=== PATIENT | male | born 1980 | race African-American/Black ===

== ENCOUNTER 2025-02-06 10:02 | Emergency (ER) | payer MEDICAID, SELFPAY ==
[2025-02-06 10:15] VITALS: BP 153/84; PULSE 76; RESP 18; TEMP 37; O2SAT 99; BMI 36.9
--- NOTE | 2025-02-06 10:40 | DI.US.S_ITS ---
PROCEDURE: US PERIPH VENOUS LOW EXTREM LT INDICATIONS: leg pain TECHNIQUE: Real-time imaging, as well as color and pulse Doppler interrogation, were performed of the lower extremity deep veins from the inguinal ligament to the popliteal fossa, with documentation of the visualized calf veins. COMPARISON: None. FINDINGS: The common femoral, femoral, popliteal, and the visualized calf veins are normally compressible, and free of intraluminal thrombus. Color and pulse Doppler demonstrate normal phasic intraluminal flow. There is normal augmentation response to distal compression maneuver. IMPRESSION: No findings of lower extremity deep venous thrombosis. Dictated by: Dominik Ham M.D. on 02/06/2025 at 11:04 Approved by: Dominik Ham M.D. on 02/06/2025 at 11:05
--- NOTE | 2025-02-06 10:40 | ED.EXTPRO ---
HPI - Extremity Problem General Chief complaint: Extremity Problem,Nontraumatic Stated complaint: blood clot in left leg? 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 He denies chest pain, shortness of breath, fever, chills, body aches, sore throat, cough. Not done anything for the pain at this time. Other than what is stated 14 point review of system is negative. Related Data Previous Rx's ?Medication ?Instructions ?Recorded clindamycin HCl 150 mg capsule 450 mg (3 x 150 mg) PO TID 7 days 02/06/25 #63 caps clotrimazole 1 % topical cream 1 applic topical TID #45 grams 02/06/25 (Athlete's Foot (clotrimazole)) Allergies Allergy/AdvReac Type Severity Reaction Status Date / Time amoxicillin AdvReac Vomiting Verified 02/06/25 10:22 Review of Systems Review of Systems ROS Unobtainable: All systems reviewed & are unremarkable except as noted in HPI and below Patient History Social History Smoking Status: Current every day smoker Smoking Status: Current every day smoker tobacco type: vaping Exam Narrative Exam Narrative: GENERAL: [45] year old patient appears stated age. Well-developed patient, in mild distress. HEAD: Atraumatic. Normocephalic. EYES: Pupils equal round and reactive. Extraocular motions intact. No scleral icterus. No injection or drainage. ENT: Nose without bleeding, purulent drainage. Throat without erythema, tonsillar hypertrophy or exudate. Airway patent. Dental caries left lower teeth on right side NECK: Trachea midline. Non tender CARDIOVASCULAR: Regular rate and rhythm without murmurs, gallops, or rubs. RESPIRATORY: Clear to auscultation. Breath sounds equal bilaterally. No wheezes, rales, or rhonchi. GASTROINTESTINAL: Abdomen soft, non-tender, nondistended. EXTREMITIES: No edema or joint tenderness. Left calf tender to palpate slightly increased calf girth enlargement compared to right side, negative You and cord not palpable motor sensory intact +2 DP +2 PT cap refill less than 2 seconds BACK: Nontender without deformity or crepitance. No flank tenderness. NEURO: AOx3. SKIN: Tinea pedis on toes 3 4 and 5 left feet her sensory intact +2 DP +2 PD cap refill less than 2 seconds Initial Vital Signs Initial Vital Signs: Vital Signs Temperature 98.6 F 02/06/25 10:15 Pulse Rate 76 02/06/25 10:15 Respiratory Rate 18 02/06/25 10:15 Blood Pressure 153/84 H 02/06/25 10:15 Pulse Oximetry 99 02/06/25 10:15 Oxygen Delivery Method Room Air 02/06/25 10:15 Course Orders Ordered: ED Orders 02/06/25 10:23 Consult to STAFF TRAINING AND DEVELOPMENT MANAGER - Proofer Apprentice Stat 02/06/25 10:40 perip venous low extrem lt Stat Vital Signs Vital signs: Vital Signs - 8 hr 02/06/25 10:15 Temperature 98.6 F Pulse Rate 76 Respiratory Rate 18 Blood Pressure 153/84 H Pulse Oximetry 99 Oxygen Delivery Method Room Air MDM - Extremity (Nontraumatic) MDM Narrative Medical decision making narrative: Vital signs, nurse triage note, medication list, previous ER visits, and all imaging modality reviewed. Ultrasound shows no acute DVT. Differential diagnosis includes DVT superficial thrombophlebitis muscle cramps. Discharge Plan Departure Patient Disposition: Home Clinical Impression: Acute leg pain, Athlete's foot on left, Abscess, dental Instructions: DI for Leg Pain Activity Restrictions/Additional Instructions: Return with new or worsening symptoms. Take Tylenol and/or ibuprofen for pain control. Keep hydrated. Follow up PCP in 1-2 weeks if no improvement in symptoms. Prescriptions: New clindamycin HCl 150 mg capsule 450 mg PO TID 7 Days Qty: 63 0RF clotrimazole [Athlete's Foot (clotrimazole)] 1 % cream 1 applic topical TID Qty: 45 0RF Stand Alone Forms: Patient Portal/API
--- NOTE | 2025-02-06 11:31 | CM.SWNOTE ---
ED CONCRETE PIPE PLANT SUPERVISOR Assessment Note: Pt is a 45yo male, resident of [place], is seen in the ED for possible blood clot in leg. Pt lives in a motel room currently. Reviewed chart and discussed with multidisciplinary team pt's medical status and initial discharge needs. CONCRETE PIPE PLANT SUPERVISOR consulted for food insecurity. CONCRETE PIPE PLANT SUPERVISOR entered room to meet with patient, introduced self and role. Pt endorses request for food vouchers due to having to pay motel rent instead of purchasing groceries. ED CONCRETE PIPE PLANT SUPERVISOR provided list of community resources to include food bhardwaj, community meals, and [facility] [place]. Pt stated he will call their office now. CONCRETE PIPE PLANT SUPERVISOR reviews this with ED provider Dr. Hunt who indicates agreement and understanding, discussed with pt RN that resources have been provided. Plan: Pt to discharge home when medically cleared, will follow with community resources. JAXSON Parkinson
[2025-02-06 11:43] VITALS: BP 136/83; PULSE 87; RESP 16; O2SAT 100
== END 2025-02-06 11:45 | disposition home or self-care (01) ==
PROVIDERS: Emergency Provider Family Medicine
DX: M79.605 Pain in left leg (principal); B35.3 Tinea pedis; K04.7 Periapical abscess without sinus; F12.90 Cannabis use, unspecified, uncomplicated
CPT/HCPCS: 93971; 99281; 99283

== ENCOUNTER 2025-03-11 06:01 | Emergency (ER) | payer OTHER, SELFPAY ==
--- NOTE | 2025-03-11 06:29 | ED_ITS ---
HPI - General Adult General Stated complaint: Poss blood clot Lt Leg, pain, trouble standing Time Seen by Provider: 03/11/25 06:26 Source: patient, RN notes reviewed and old records reviewed Mode of arrival: Family Vehicle Limitations: no limitations Related Data Previous Rx's ?Medication ?Instructions ?Recorded clotrimazole 1 % topical cream 1 applic topical TID #4 5 grams 02/06/25 (Athlete's Foot (clotrimazole)) Allergies Allergy/AdvReac Type Severity Reaction Status Date / Time amoxicillin AdvReac Vomiting Verified 02/06/25 10:22 Review of Systems Review of Systems ROS Unobtainable: All systems reviewed & are unremarkable except as noted in HPI and below Patient History tobacco type: vaping Discharge Plan Departure Prescriptions: No Action clotrimazole [Athlete's Foot (clotrimazole)] 1 % cream 1 applic topical TID Qty: 45 0RF
[2025-03-11 06:55] VITALS: BP 145/92; PULSE 78; RESP 18; O2SAT 100; BMI 29.0
--- NOTE | 2025-03-11 07:24 | ED_ITS ---
HPI - Extremity Problem General Chief complaint: Extremity Problem,Nontraumatic Stated complaint: Poss blood clot Lt Leg, pain, trouble standing Time Seen by Provider: 03/11/25 06:26 Source: patient, RN notes reviewed and old records reviewed Mode of arrival: Family Vehicle History of Present Illness HPI Narrative: 45-year-old gentleman presents with left lower back pain radiating down to left calf that is been going on for the past 3 months intermittently for which he was initially seen at another ER in the past few weeks for which he had a negative workup. He is still symptomatic at this time but denies any chest pain shortness of breath, dyspnea on exertion, trauma to the area, or recent heavy lifting. Other than what is stated 14 point review of system is negative. Related Data Previous Rx's ?Medication ?Instructions ?Recorded clotrimazole 1 % topical cream 1 applic topical TID #4 5 grams 02/06/25 (Athlete's Foot (clotrimazole)) diclofenac sodium 75 mg 75 mg PO BID #30 tabs tablet,delayed release gabapentin 300 mg capsule 300 mg PO TID #30 caps 03/11 prednisone 20 mg tablet 40 mg (2 x 20 mg) PO DAILY # 10 tabs 03/11/25 Allergies Allergy/AdvReac Type Severity Reaction Status Date / Time amoxicillin AdvReac Vomiting Verified 02/06/25 10:22 Review of Systems Review of Systems ROS Unobtainable: All systems reviewed & are unremarkable except as noted in HPI and below Patient History tobacco type: vaping Exam Narrative Exam Narrative: GENERAL: [45] year old patient appears stated age. Well-developed patient, in mild distress. HEAD: Atraumatic. Normocephalic. EYES: Pupils equal round and reactive. Extraocular motions intact. No scleral icterus. No injection or drainage. ENT: Nose without bleeding, purulent drainage. Throat without erythema, tonsillar hypertrophy or exudate. Airway patent. NECK: Trachea midline. Non tender CARDIOVASCULAR: Regular rate and rhythm without murmurs, gallops, or rubs. RESPIRATORY: Clear to auscultation. Breath sounds equal bilaterally. No wheezes, rales, or rhonchi. GASTROINTESTINAL: Abdomen soft, non-tender, nondistended. EXTREMITIES: No edema or joint tenderness. BACK: Nontender without deformity or crepitance in the midline region. No flank tenderness. L-S paralumbosacral region [id number] region NEURO: AOx3. SKIN: No rash or erythema of visible areas Initial Vital Signs Initial Vital Signs: Vital Signs Pulse Rate 78 03/11/25 06:55 Respiratory Rate 18 03/11/25 06:55 Blood Pressure 145/92 H 03/11/25 06:55 Pulse Oximetry 100 03/11/25 06:55 Oxygen Delivery Method Room Air 03/11/25 06:55 [place] [facility] [place] Procedure: L sided back steroid trigger point injection Side (if applicable): left Location: paralumbosacral region Time out performed: Yes Technique/Description of procedure performed: Patient draped and prepped in a sterile fashion. Using 2% lidocaine 4 mL without epinephrine and Kenalog 40 mg 1 mL using a 22 1-1/2 gauge needle L4 (3ml) L5 (3ml) and S1(4ml) were injected for which patient tolerated procedure without any complications. Patient tolerated procedure: Well Complications: none Course Vital Signs Vital signs: Vital Signs - 8 hr 03/11/25 06:55 Pulse Rate 78 Respiratory Rate 18 Blood Pressure 145/92 H Pulse Oximetry 100 Oxygen Delivery Method Room Air MDM - Extremity (Nontraumatic) MDM Narrative Medical decision making narrative: Vital signs, nurse triage note, medication list, previous ER visits, and all imaging studies reviewed. Patient given Tylenol ibuprofen and also left sided steroid trigger point injection for which patient tolerated procedure with no complication. Differential diagnosis includes sciatica piriformis syndrome osteoarthritis lumbar strain. DC home on diclofenac, gabapentin, and prednisone. Discharge Plan Departure Patient Disposition: Home Clinical Impression: Sciatica Qualifiers: Laterality: left Qualified Code(s): M54.32 - Sciatica, left side Instructions: DI for Back Pain With Sciatica Activity Restrictions/Additional Instructions: Return with new or worsening symptoms. Take your medicines directed. Follow up PCP in 1-2 weeks if no improvement in symptoms. Prescriptions: New gabapentin 300 mg capsule 300 mg PO TID Qty: 30 0RF prednisone 20 mg tablet 40 mg PO DAILY Qty: 10 0RF diclofenac sodium 75 mg tablet,delayed release (DR/EC) 75 mg PO BID Qty: 30 0RF No Action clotrimazole [Athlete's Foot (clotrimazole)] 1 % cream 1 applic topical TID Qty: 45 0RF Stand Alone Forms: Patient Portal/API
[2025-03-11] MEDS: IBUPROFEN 400 MG TABLET 800 MG PO (08:08)
[2025-03-11] MEDS: ACETAMINOPHEN 325 MG TABLET 975 MG PO (08:08)
[2025-03-11] MEDS: TRIAMCINOLONE 40 MG/ML VIAL INJ (08:09)
[2025-03-11] MEDS: LIDOCAINE 2% INJ MDV 20ML 20 ML INJ (08:09)
[2025-03-11 08:39] VITALS: BP 151/97; PULSE 70; RESP 16; O2SAT 100
== END 2025-03-11 08:39 | disposition home or self-care (01) ==
PROVIDERS: Emergency Provider Family Medicine
DX: M54.32 Sciatica, left side (principal); F17.290 Nicotine dependence, other tobacco product, uncomplicated
CPT/HCPCS: 20553; 99283; 99284

== ENCOUNTER 2025-03-29 09:48 | Emergency (ER) | payer OTHER, SELFPAY ==
--- NOTE | 2025-03-29 09:56 | PC.NURSE ---
Called for patient no answer
[2025-03-29 10:16] VITALS: BP 149/98; PULSE 88; RESP 16; TEMP 36.5; O2SAT 99; BMI 31.0
--- NOTE | 2025-03-29 11:30 | ED_ITS ---
HPI - Extremity Injury (Lower) <Marquita Isaacs PA-C - Last Filed: 03/29/25 13:51> General Chief Complaint: Extremity Injury, Lower Stated Complaint: took advil and diclofenac sodium/worried Time Seen by Provider: 03/29/25 11:03 Source: patient Mode of arrival: Ambulatory History of Present Illness HPI Narrative: Mr. Estevez is a pleasant 45-year-old male with a past medical history of hypertension sleep apnea who has been struggling with left leg sciatica intermittently over the last 3 months who presents to the emergency department for concern of left calf pain in addition to concern of taking both ibuprofen and diclofenac together accidentally. Patient was seen in this ER earlier this month and was prescribed gabapentin, prednisone and diclofenac for left lower extremity sciatica symptoms. Patient reports he had improvement symptoms with the gabapentin however he ran out of this prescription. He took diclofenac at 2:30 a.m. because he had pretty significant pain and when he woke up this morning he took ibuprofen around 9:30 a.m., he reports taking 5 or 6 ibuprofen tablets. He then Google this medication and realized that he was not supposed to take diclofenac and ibuprofen together and came to the ER because he was concerned that he may have injured himself. Patient is also reporting occasional tinnitus 10 pain of the left calf, this pain does originate in the left side of the low back and radiate down the leg. He is concerned because despite taking a large amount of NSAIDs, they are not resolving his pain. He does work as a trailer tank truck driver. No bowel or bladder incontinence, weakness, saddle anesthesia, fevers, chills, chest pain, shortness of breath. No melena, hematemesis, or bloody stool. Related Data Previous Rx's ?Medication ?Instructions ?Recorded clotrimazole 1 % topical cream 1 applic topical TID #4 5 grams 02/06/25 (Athlete's Foot (clotrimazole)) diclofenac sodium 75 mg 75 mg PO BID #30 tabs tablet,delayed release gabapentin 300 mg capsule 300 mg PO TID #30 caps 03/11 prednisone 20 mg tablet 40 mg (2 x 20 mg) PO DAILY # 10 tabs 03/11/25 gabapentin 300 mg capsule 300 mg PO TID PRN nerve pain #30 03/29/25 caps ibuprofen 400 mg tablet 400 mg PO Q8H PRN pain #30 t abs 03/29/25 Allergies Allergy/AdvReac Type Severity Reaction Status Date / Time amoxicillin AdvReac Vomiting Verified 02/06/25 10:22 Review of Systems <Marquita Vallejo COLLEEN Isaacs - Last Filed: 03/29/25 13:51> Review of Systems ROS Unobtainable: All systems reviewed & are unremarkable except as noted in HPI and below Patient History <Marquita Vallejo COLLEEN Isaacs - Last Filed: 03/29/25 13:51> tobacco type: vaping Exam <Marquita Vallejo COLLEEN Isaacs - Last Filed: 03/29/25 13:51> Narrative Exam Narrative: GENERAL: 45 year old patient appears stated age. Well-developed patient, in no acute distress. HEAD: Atraumatic. Normocephalic. EYES: No scleral icterus. No injection or drainage. ENT: Nose without bleeding, purulent drainage. NECK: Trachea midline. Cervical ROM intact. CARDIOVASCULAR: Regular rate RESPIRATORY: ?Nonlabored respirations. ?Speaking in clear, full sentences. ? EXTREMITIES: No LE edema or color change. He does have tenderness palpation of the left calf muscle region. 2+ DP and PT pulse and brisk cap refill in the toes, sensation intact to light touch. Patient is ambulatory but with discomfort. BACK: No midline spinal tenderness or paralumbar tenderness. Patient does report pain initiating in the left SI joint region. NEURO: AOx3. ?Clear speech. ?Moves all 4 extremities appropriately. SKIN: No rash or erythema of visible areas Initial Vital Signs Initial Vital Signs: Vital Signs Temperature 97.7 F 03/29/25 10:16 Pulse Rate 88 03/29/25 10:16 Respiratory Rate 16 03/29/25 10:16 Blood Pressure 149/98 H 03/29/25 10:16 Pulse Oximetry 99 03/29/25 10:16 Oxygen Delivery Method Room Air 03/29/25 10:16 <Jose Muniz MD - Last Filed: 03/29/25 14:08> Initial Vital Signs Initial Vital Signs: Vital Signs Temperature 97.7 F 03/29/25 10:16 Pulse Rate 88 03/29/25 10:16 Respiratory Rate 16 03/29/25 10:16 Blood Pressure 149/98 H 03/29/25 10:16 Pulse Oximetry 99 03/29/25 10:16 Oxygen Delivery Method Room Air 03/29/25 10:16 Course <Marquita Isaacs PA-C - Last Filed: 03/29/25 13:51> Orders Ordered: ED Orders 03/29/25 11:37 [facility] venous low extrem lt Stat Vital Signs Vital signs: Vital Signs - 8 hr 03/29/25 10:16 03/29/25 12:52 Temperature 97.7 F Pulse Rate 88 73 Respiratory Rate 16 18 Blood Pressure 149/98 H 178/94 H Pulse Oximetry 99 98 Oxygen Delivery Method Room Air Room Air <Jose Muniz MD - Last Filed: 03/29/25 14:08> Orders Ordered: ED Orders 03/29/25 11:37 [facility] venous low extrem lt Stat Vital Signs Vital signs: Vital Signs - 8 hr 03/29/25 10:16 03/29/25 12:52 Temperature 97.7 F Pulse Rate 88 73 Respiratory Rate 16 18 Blood Pressure 149/98 H 178/94 H Pulse Oximetry 99 98 Oxygen Delivery Method Room Air Room Air MDM - Extremity Injury (Lower) <Marquita Isaacs PA-C - Last Filed: 03/29/25 13:51> Medical Records Attestation: I reviewed the patient's medical records. Imaging Data LLE Vascular US: Radiologist's Impression: PROCEDURE: US [facility] VENOUS LOW EXTREM LT INDICATIONS: Left calf pain, cramping, concern dvt TECHNIQUE: Real-time imaging, as well as color and pulse Doppler interrogation, were performed of the lower extremity deep veins from the inguinal ligament to the popliteal fossa, with documentation of the visualized calf veins. COMPARISON: [facility], PERIP VENOUS LOW EXTREM LT, 02/06/2025, 10:52. FINDINGS: The common femoral, femoral, popliteal, and the visualized calf veins are normally compressible, and free of intraluminal thrombus. Color and pulse Doppler demonstrate normal phasic intraluminal flow. There is normal augmentation response to distal compression maneuver. IMPRESSION: No findings of lower extremity deep venous thrombosis. Dictated by: Ramone Knox M.D. on 03/29/2025 at 11:24 Approved by: Ramone Knox M.D. on 03/29/2025 at 11:24 [facility] Narrative Medical decision making narrative: 45-year-old male with a past medical history of hypertension sleep apnea who has been struggling with left leg sciatica intermittently over the last 3 months who presents to the emergency department for concern of left calf pain in addition to concern of taking both ibuprofen and diclofenac together accidentally. Differential diagnosis includes but isn't limited to medication misuse, left lumbar radiculopathy, calf strain, sprain, DVT, etc. On exam patient is in no acute distress, nontoxic appearing, vital signs appropriate. He was concerned after taking diclofenac and ibuprofen this morning. He is not having any abdominal pain melena or hematemesis. He is still having severe left lumbar radiculopathy however with pain primarily in the left calf. He does have large calves bilaterally however no obvious unilateral edema, strong pulses and sensation intact to light touch however given focal calf pain and tenderness we will obtain ultrasound. Patient states that his pain was improved when he was taking the gabapentin so we will resume this until he can see PCP. Ultrasound reveals no DVT. Discussed with the patient using gabapentin to help with nerve pain, I did refill this for him, in addition to Tylenol for pain, heat therapy, stretching. I did prescribe him ibuprofen 400 mg to use if needed for pain, stressed the strict importance of using NSAIDs as directed, advised he not take any NSAIDs for at least the next week. Discussed strict ER return precautions and follow up with PCP. Patient verbalized understanding of all information agreeable with the plan. He is ambulatory and stable for discharge home. Discharge Plan Departure Patient Disposition: Home Clinical Impression: Chronic left-sided lumbar radiculopathy, Pain of left calf Instructions: DI for Lumbar Radiculopathy Activity Restrictions/Additional Instructions: Dear Mr. Barriga, Thank you for coming to the emergency department. Today you were evaluated for left leg pain and calf pain. As we discussed today, I do not want you taking ibuprofen and diclofenac together. Avoid taking any NSAIDs for the next few days. Only use 400 mg of ibuprofen every 8 hours if needed. Return to the ER immediately if you develop severe abdominal pain, black or bloody stool or bloody vomit. Please use heat therapy on the low back and stretching to help with your pain. I have refilled your gabapentin to use as needed for nerve pain. Please also use Tylenol for pain. Return to the ER immediately if you develop new or worsening symptoms, inability to walk, difficulty with your bowels or bladder or any other concerns. Please follow up with your primary care doctor within the next 2-3 days for ER follow-up. (If you do not have a PCP you can call [phone]. ?to schedule an appointment with an [facility] Primary Care Provider) IF YOU DEVELOP ANY NEW OR WORSENING SYMPTOMS, RETURN TO THE ER! Please read the attached instructions, they highlight more specific treatments and interventions for you at home. Thank you for letting me participate in your care, Marquita Isaacs PA-C Prescriptions: New gabapentin 300 mg capsule 300 mg PO TID PRN (Reason: nerve pain) Qty: 30 0RF ibuprofen 400 mg tablet 400 mg PO Q8H PRN (Reason: pain) Qty: 30 0RF Rx Instructions: Take with food. No Action clotrimazole [Athlete's Foot (clotrimazole)] 1 % cream 1 applic topical TID Qty: 45 0RF gabapentin 300 mg capsule 300 mg PO TID Qty: 30 0RF prednisone 20 mg tablet 40 mg PO DAILY Qty: 10 0RF diclofenac sodium 75 mg tablet,delayed release (DR/EC) 75 mg PO BID Qty: 30 0RF Stand Alone Forms: Patient Portal/API ED Sign-out <Jose Muniz MD - Last Filed: 03/29/25 14:08> Cosign ED Attending Cosignature Attestation: I was immediately available in the department for consultation. ?This documentation has been reviewed and I agree with assessment and plan. Supervised by Jose Muniz MD
--- NOTE | 2025-03-29 11:37 | DI.US.S_ITS ---
PROCEDURE: US PERIP VENOUS LOW EXTREM LT INDICATIONS: Left calf pain, cramping, concern dvt TECHNIQUE: Real-time imaging, as well as color and pulse Doppler interrogation, were performed of the lower extremity deep veins from the inguinal ligament to the popliteal fossa, with documentation of the visualized calf veins. COMPARISON: [facility], [facility] VENOUS LOW EXTREM LT, 02/06/2025, 10:52. FINDINGS: The common femoral, femoral, popliteal, and the visualized calf veins are normally compressible, and free of intraluminal thrombus. Color and pulse Doppler demonstrate normal phasic intraluminal flow. There is normal augmentation response to distal compression maneuver. IMPRESSION: No findings of lower extremity deep venous thrombosis. Dictated by: Ramone Knox M.D. on 03/29/2025 at 11:24 Approved by: Ramone Knox M.D. on 03/29/2025 at 11:24
[2025-03-29 12:52] VITALS: BP 178/94; PULSE 73; RESP 18; O2SAT 98
== END 2025-03-29 12:53 | disposition home or self-care (01) ==
PROVIDERS: Emergency Provider Physician Assistant
DX: M54.16 Radiculopathy, lumbar region (principal); M79.605 Pain in left leg
CPT/HCPCS: 93971; 99281; 99283

== ENCOUNTER 2025-05-22 07:31 | Emergency (ER) | payer OTHER, SELFPAY ==
[2025-05-22 08:00] VITALS: BP 186/90; PULSE 91; RESP 12; TEMP 37.7; O2SAT 100; BMI 29.2
--- NOTE | 2025-05-22 08:05 | ED.DENTAL ---
HPI - Dental/Oral General Chief complaint: Dental/Oral Stated complaint: Right side Mouth pain, needs pain meds Time Seen by Provider: 05/22/25 08:00 History of Present Illness HPI Narrative: Patient here for right upper teeth pain. No swelling no fever no trouble swallowing. Patient is seen by his dentist a week ago for wisdom teeth removed left upper side. Has been doing well with that but they did not prescribe him antibiotics. He was given clindamycin a couple of months ago prior to his surgery. He said that it helped his pain a lot. He is on Motrin for pain control and it has not helped. He does wish for Tylenol 3 to help for pain. He will be started on clindamycin again. He has not follow up with this oral surgeon yet. Patient understands no driving operating machinery when taking Tylenol 3. He will continue the ibuprofen for pain control as well. Patient is a smoker. Encouraged him to stop smoking. Related Data Previous Rx's ?Medication ?Instructions ?Recorded clotrimazole 1 % topical cream 1 applic topical TID #45 grams 02/06/25 (Athlete's Foot (clotrimazole)) diclofenac sodium 75 mg 75 mg PO BID #30 tabs 03/11/25 tablet,delayed release gabapentin 300 mg capsule 300 mg PO TID #30 caps 03/11/25 prednisone 20 mg tablet 40 mg (2 x 20 mg) PO DAILY #10 tabs 03/11/25 gabapentin 300 mg capsule 300 mg PO TID PRN nerve pain #30 03/29/25 caps ibuprofen 400 mg tablet 400 mg PO Q8H PRN pain #30 tabs 03/29/25 acetaminophen 300 mg-codeine 15 mg 1 tab PO Q8H PRN pain #15 tabs 05/22/25 tablet clindamycin HCl 300 mg capsule 300 mg PO Q8H #21 caps 05/22/25 ondansetron 4 mg disintegrating 4 mg PO Q6H PRN nausea and 05/22/25 tablet vomiting #20 tabs Allergies Allergy/AdvReac Type Severity Reaction Status Date / Time amoxicillin AdvReac Vomiting Verified 05/22/25 08:10 Review of Systems Review of Systems Narrative: GENERAL: Negative chills, fatigue, malaise, fever, sweats. HEENT: Negative sinus pain, ear pain, sore throat, positive dental pain RESPIRATORY: Negative dyspnea, cough CARDIOVASCULAR: Negative chest pain, palpitations GASTROINTESTINAL: Negative vomiting, nausea, abdominal pain : Negative dysuria, frequency, hematuria MUSCULOSKELETAL: Negative muscle or bony pain SKIN: Negative rash, skin lesions NEUROLOGIC: Negative weakness, numbness ROS Unobtainable: All systems reviewed & are unremarkable except as noted in HPI and below Patient History Social History Smoking Status: Current every day smoker tobacco type: vaping Exam Narrative Exam Narrative: GENERAL: in no distress, not toxic not dyspneic HEAD: Normocephalic. EYES: Pupils equal round ENT: Mucous membranes moist. Diffuse dental caries upper and lower teeth bilaterally. On the right side no palpable abscess. There are diffuse teeth with dental caries. No malocclusion no trismus no tongue elevation no drooling. No facial swelling or erythema edema. No induration. There is tenderness to the teeth with dental caries on the right upper side. NECK: Trachea midline. NEURO: AOx4. Clear speech SKIN: Warm and dry PSYCH: Not anxious, is cooperative Initial Vital Signs Initial Vital Signs: Vital Signs Temperature 99.8 F H 05/22/25 08:00 Pulse Rate 91 H 05/22/25 08:00 Respiratory Rate 12 05/22/25 08:00 Blood Pressure 186/90 H 05/22/25 08:00 Pulse Oximetry 100 05/22/25 08:00 Oxygen Delivery Method Room Air 05/22/25 08:00 Course Orders Ordered: Discontinued Medications Clindamycin HCl (Clindamycin 150 Mg Capsule) 300 mg PO NOW ONE Stop: 05/22/25 08:08 Last Admin: 05/22/25 08:17 Dose: 300 mg Documented By: [facility] Vital Signs Vital signs: Vital Signs - 8 hr 05/22/25 08:00 Temperature 99.8 F H Pulse Rate 91 H Respiratory Rate 12 Blood Pressure 186/90 H Pulse Oximetry 100 Oxygen Delivery Method Room Air MDM - Dental/Oral MDM Narrative Medical decision making narrative: Patient here for right upper teeth pain. No swelling no fever no trouble swallowing. Patient is seen by his dentist a week ago for wisdom teeth removed left upper side. Has been doing well with that but they did not prescribe him antibiotics. He was given clindamycin a couple of months ago prior to his surgery. He said that it helped his pain a lot. He is on Motrin for pain control and it has not helped. He does wish for Tylenol 3 to help for pain. He will be started on clindamycin again. He has not follow up with this oral surgeon yet. Patient understands no driving operating machinery when taking Tylenol 3. He will continue the ibuprofen for pain control as well. Patient is a smoker. I did encourage him to stop smoking. MDM After history and exam, exam is reassuring. No blood work or imaging indicated. Airway intact. Differential considered: Includes but not limited to dental caries wisdom teeth pain dental abscess Medical records reviewed: No recent visit here for this complaint Re-evaluations: 8:13 a.m.. Review with patient exam findings and treatment plan. He agrees. He has had clindamycin and Tylenol threes in the past with success. He has established oral surgeon to call and make appointment. Return precautions reviewed. He desires discharge home. Discussion: Appropriate for discharge home. Exam is reassuring. Airway intact. Diagnosis: Dental caries Discharge Plan Departure Patient Disposition: Home Clinical Impression: Dental caries, Toothache Instructions: Tooth Decay, DI for Dental Pain Activity Restrictions/Additional Instructions: No driving operating machinery when taking Tylenol 3 as it is a narcotic. Please contact your oral surgeon for appointment time for re-evaluation of the teeth on the upper right side and removal of them. Prescription for antibiotic and pain medication has been provided for you. You may continue ibuprofen for pain as well. Return if worse if any questions or concerns Prescriptions: New clindamycin HCl 300 mg capsule 300 mg PO Q8H Qty: 21 0RF acetaminophen-codeine 300-15 mg tablet 1 tab PO Q8H PRN (Reason: pain) Qty: 15 0RF ondansetron 4 mg tablet,disintegrating 4 mg PO Q6H PRN (Reason: nausea and vomiting) Qty: 20 0RF No Action clotrimazole [Athlete's Foot (clotrimazole)] 1 % cream 1 applic topical TID Qty: 45 0RF gabapentin 300 mg capsule 300 mg PO TID Qty: 30 0RF prednisone 20 mg tablet 40 mg PO DAILY Qty: 10 0RF diclofenac sodium 75 mg tablet,delayed release (DR/EC) 75 mg PO BID Qty: 30 0RF gabapentin 300 mg capsule 300 mg PO TID PRN (Reason: nerve pain) Qty: 30 0RF ibuprofen 400 mg tablet 400 mg PO Q8H PRN (Reason: pain) Qty: 30 0RF Rx Instructions: Take with food. Stand Alone Forms: Patient Portal/API
[2025-05-22] MEDS: CLINDAMYCIN 150 MG CAPSULE 300 MG PO (08:17)
== END 2025-05-22 08:19 | disposition home or self-care (01) ==
PROVIDERS: Emergency Provider Emergency Medicine
DX: K08.89 Other specified disorders of teeth and supporting structures (principal); K02.9 Dental caries, unspecified
CPT/HCPCS: 99283